=== PATIENT | female | born 1945 | race Caucasian/White ===

== ENCOUNTER 2021-03-27 10:54 | Day surgery (SDC) | payer MEDICARE, MEDICAID ==
[~2021-03-27] VITALS: Ht 157.5 cm; Wt 63.9 kg
[2021-03-27 11:30] VITALS: BP 147/63
[2021-03-27] MEDS ORDERED: PRED5DRO23 EACHEYE (11:42)
[2021-03-27] MEDS ORDERED: GABA300C PO (11:42)
[2021-03-27] MEDS ORDERED: LEVO50TA66 PO (11:42)
[2021-03-27] MEDS ORDERED: HYDR25TA5 PO (11:42)
[2021-03-27] MEDS ORDERED: GANC5GEL2 RIGHTEYE (11:42)
[2021-03-27] MEDS ORDERED: BUSP10TA3 PO (11:42)
[2021-03-27] MEDS ORDERED: MELO-102 PO (11:42)
[2021-03-27] MEDS ORDERED: ACYC200C30 PO (11:42)
[2021-03-27] MEDS ORDERED: LISI30TA4 PO (11:42)
[2021-03-27] MEDS ORDERED: LOVA20TA2 PO (11:42)
[2021-03-27] MEDS ORDERED: DOXE50CA4 PO (11:42)
[2021-03-27] MEDS ORDERED: METF-1203 PO (11:42)
[2021-03-27] MEDS ORDERED: ASPI-611 PO (11:49)
[2021-03-27] MEDS ORDERED: LIDOcaine 1% 30ml preserv. free vial SQ STA (13:17)
[2021-03-27] MEDS ORDERED: LIDOcaine 1% W/epiNEPHrine 1:100,000 20ml vial SQ ONE (13:20)
== END 2021-03-27 13:50 | disposition home or self-care (01) ==
LOC: SSTAY O 10:54
PROVIDERS: ATTEND Preventive Medicine Aerospace Medicine
DX: R22.9 Localized swelling, mass and lump, unspecified (principal); D23.39 Other benign neoplasm of skin of other parts of face; Z88.2 Allergy status to sulfonamides; Z88.0 Allergy status to penicillin
CPT/HCPCS: 20206; 36415; 38505; 76942; 88184; 88185; 88305; 88360